=== PATIENT | male | born 1970 | race Caucasian/White ===

== ENCOUNTER → 2018-07-12 14:18 | Outpatient (CLI) | payer BC, SELFPAY ==
[2018-07-12 07:47] VITALS: BMI 25.1
--- OUTSIDE RECORDS SUMMARY | 2018-10-14 02:48 | XMS RPT_ITS ---
:1970 Author Organization [facility] Care Team Providers Name Role Phone Jann Zamudio Attending Unavailable Ty Lee Referring Unavailable Jann Zamudio Attending Unavailable Jann Zamudio Referring Unavailable Ty Lee Primary Care Unavailable PROBLEMS PROBLEMS DATE TYPE CONDITION / CODE ATTENDING STATUS SOURCE 07/13/2018 Unknown J02.9 - Acute Robb, Jann Active [place] pharyngitis, [facility] unspecified / Hospital J02.9(ICD-10) Repository 07/13/2018 Unknown J01.90 - Acute Robb, Jann Active [place] sinusitis, Community unspecified / Hospital J01.90(ICD-10) Repository 07/13/2018 Unknown J01.40 - Acute Robb, Jann Active [place] pansinusitis, Community unspecified / Hospital J01.40(ICD-10) Repository PROCEDURES PROCEDURES No Procedure Records FoundRESULTS RESULTS URGENT CARE VISIT Observed: 07/12/2018 Status: F Source: [place] REPORT 8:12 AM [facility] REPOSITORY [facility] [address] [place] [address] [address] [place] [address] OFFICE VISIT Date of Service: 07/12/18 MR#: [id number] Acct: [id number] Name: PATTI CAMEJO Rep #: [id number] : 1970 Provider: Jann LLOYD Age/Sex: 47/M Location: [facility] Status: Signed Intake Vital Signs07/12/18 Height 6 ft 3 in 07/12/18 Weight: 201 lb 07/12/18 Body Mass Index (BMI) 25.1 07/12/18 Blood Pressure 128/84 H Intake Visit Reasons: SORE THROAT/HEADACHE Slat Grader Required: No Accompanied by: SELF Is patient in pain?: No Allergies No Known Allergies Allergy (Unverified 07/12/18 07:48) Medications amoxicillin 875 mg-potassium clavulanate 125 mg tablet 1 tab PO Q12H 10 Days #20 tab 07/12/18 [Rx Confirmed 07/12/18] PFSH Medical History Cat allergies (Acute) Surgical History History of back surgery (Acute) Social History Smoking Status: Never smoker alcohol intake: current alcohol intake frequency: a few times a week HPI HPI Details: PATTI CAMEJO, is a 47 M who presents to the office today for nasal congestion, sinus headache and sore throat for the past 10 days. Patient states that the nasal congestion and sinus headache have worsened over the past several days. He has used Tylenol for the headaches which does help moderately. He is also used Mucinex and several other [id number] medications with no improvement. He has had no fever, chills, sweats. No nausea, vomiting, diarrhea. No other associated symptoms or alleviating/aggravating factors. ROS Const Constitutional: Positive for headache(s); no fever(s), chills, night sweats or abnormal sleep pattern ENT ENT: Positive for headache(s), nasal congestion, sinus pressure, sinus pain and nasal discharge; no ear pain Resp Respiratory: No cough or shortness of breath Cardio Cardiology: No shortness of breath, irregular heart rhythm or fast heart rate Neuro Neurology: Positive for headache(s); no confusion Psych Psychiatric: No abnormal sleep pattern, No confusion Exam Const General: cooperative, healthy appearing [facility] Head: normal to inspection Ears: hearing grossly normal bilaterally, TM's normal bilaterally, EAC's normal Nose: nasal discharge purulent Face and sinus: sinus tenderness frontal and maxillary Mouth: oral mucosae normal Throat: abnormal tonsil bilaterally, postnasal drainage Resp Effort AND Inspection: normal respiratory effort Auscultation: Bilateral: Clear to Auscultation Cardio Palpation: normal PMI Rate: regular rate Rhythm: regular rhythm Neuro General: alert, CN's II-XI intact bilaterally Psych Appearance: grossly normal Mental Status: mental status grossly normal Results BMSRAPIDSTREPA Office Rapid Strep A Negative Last Edit by Senia Acharya on 07/12/18 07:55 Assessment AND Plan Problems 1. Acute non-recurrent pansinusitis J01.40 Status Acute Plan Augmentin as prescribed today. Encouraged to get plenty of rest, drink lots of clear liquids, and use Tylenol or Ibuprofen (unless contraindicated) for fever and comfort. Patient also educated on other symptomatic management techniques. To be seen in 7-10 days if no improvement; sooner if worsening of symptoms. Patient advised of potential red flags and when appropriate to report to the ED. Patient verbalized understanding and agreement with all the above. Orders Orders: Medications New: amoxicillin-pot clavulanate 875-125 mg (Augmentin1 tab PO Q12H 10 days 20 tabs 0RF J01.90 ) Coding Level of Care Code Off vis,new,level 3 Diagnoses Acute non-recurrent pansinusitis J01.40 Recurrence: non-recurrent Sinusitis location: pansinusitis 07/12/18 0812 <Electronically signed by Jann LLOYD> Date Jann LLOYD Cosigner Signature: Date (if applicable) CC: Observed: 07/12/2018 Status: F Source: [place], R/O STREP A 7:45 AM [facility] REPOSITORY VANESSA Culture No Group A Beta Streptococcus isolated. * This cultures intended use is to screen for Beta Streptococcus A only. All other pathogens and potential pathogens will not be screened for or reported. If a complete workup of all potential pathogens is indicated an order for a routine throat culture is required. Performed By: #### M100.010 #### [facility] [address] [place], [address] ALLERGIES ALLERGIES DATE TYPE / CODE NAME / CODE REACTION SEVERITY SOURCE 07/12/2018 Drug No Known Unknown [facility] Allergy/4160 Allergies/F00 Hospital 68100(SNOMED [id number](RXNOR Repository CT) M) ENCOUNTERS ENCOUNTERS ADMIT/DISCHARGE ACCOUNT ADMITTING ENCOUNTER LOCATION SOURCE NUMBER CLASS 07/12/2018 [id number] Ambulatory [place] ing:[facility]SPEC Repository 07/12/2018/12/18/ [id number] Ambulatory BMSBuilding:[address] [place] [address] [facility] Repository PAYERS PAYERS ENCOUNTER GUARANTOR PAYER SUBSCRIBER SOURCE 07/12/2018 PATTI Primary PATTI [place] [id number] Insurance:ANTHEMPolic SCHNEIDERDOB: Community [place]: [id number] [id number] Repository [id number]: (330) Date:5952-02-16QS [phone] () [address] [place] [address] [place] [address]UW: 07/12/2018 Secondary NOT GIVENUNK [place] Insurance:SELF PAY [facility] Number: Effective Repository Date:2018-07-12 07/12/2018 PATTI Primary PATTI [place] [id number] Insurance:ANTHEMPolic SCHNEIDERDOB: [facility] [place] y Number: [id number] [id number] Repository [id number]: [phone]) Date:[id number] [phone] () [place] [address]ZF: 07/12/2018 Secondary NOT GIVENUNK [place] Insurance:SELF PAY [facility] Number: Effective Repository Date:2018-07-12
== END ==
PROVIDERS: Family Provider Internal Medicine; PCP Internal Medicine; Referring Provider Physician Assistant Surgical; Visit Provider Physician Assistant Surgical
DX: J02.9 Acute pharyngitis, unspecified (principal)
CPT/HCPCS: 87081

== ENCOUNTER 2025-02-09 18:29 | Emergency (ER) | payer BC, SELFPAY ==
[2025-02-09] VITALS (7 sets, daily range): BP systolic 130–163; BP diastolic 79–111; PULSE 65–103; RESP 14–21; TEMP 36.9; O2SAT 93–99
--- NOTE | 2025-02-09 18:36 | EX.ED.DYSGE1 ---
HPI History of Present Illness Chief Complaint: Allergic Reaction Detail of Chief Complaint: Allergic reaction Informant: patient Narrative Narrative: Patient presents the emergency department with complaint of allergic reaction to hornets that stung him around 9 AM today while playing golf. Patient states that he was only stung on the legs and developed some hives. He took Benadryl at home. About an hour or 2 ago developed some swelling to his lips and that when he decided to come and get evaluated. He denies difficulty breathing or difficulty swallowing. No significant medical history. [facility] Medical History (Updated 02/09/25 @ 23:[address] Mara Brooke, DO) Cat allergies Home Medications ?Medication ?Instructions ?Recorded ?Last Taken ?Type epinephrine 0.3 mg/0.3 mL 0.3 mg (0.3 mL) IM Q10M PRN PRN 02/09/25 Unknown Rx injection, auto-injector (EpiPen) anaphylaxis #1 ea prednisone 20 mg tablet 20 mg PO BID #6 tabs 02/09/25 Unknown Rx Allergy/AdvReac Type Severity Reaction Status Date / Time No Known Allergies Allergy Verified 02/09/25 18:30 Surgical History History of back surgery Social History Smoking Status: Never smoker alcohol intake: current alcohol intake frequency: a few times a week ROS ROS ED Review of Systems ROS Unobtainable: other Constitutional Constitutional ED: Reports lethargy; Denies chills, fever(s), sweats or weight loss Eyes Eyes: Denies blurry vision, change in vision or diplopia ENT ENT ED: Reports other Details: Lip swelling ; Denies rhinorrhea or sore throat Cardiovascular Cardiovascular: Reports chest pain and racing heartbeat; Denies orthopnea Respiratory/Chest Respiratory/Chest: Reports dyspnea and dyspnea on exertion; Denies cough, orthopnea or sputum Gastrointestinal Gastrointestinal: Denies abdominal pain, diarrhea, nausea or vomiting Genitourinary Genitourinary ED: Denies dysuria, hematuria or urinary frequency Musculoskeletal Musculoskeletal: Denies arthralgias, back pain, myalgias or neck pain Integumentary Denies abscess, Abrasions or rash Neurologic Neurologic: Denies headache(s) or weakness Psychiatric Psychiatric: Denies anxiety, depression or suicidal thoughts Endocrine Endocrinology: Denies polydipsia, polyphagia or polyuria Hematologic/Lymphatic Hematologic/Lymphatic: Denies easy bleeding, easy bruising or lymphadenopathy Allergic/Immunologic Allergic/Immunologic ED: Reports urticaria; Denies mouth swelling or tongue swelling EXAM Physical Exam Const Vital Signs: 02/09/25 18:30 02/09/25 19:29 02/09/25 20:00 Temperature 98.5 F Temperature Source Oral Pulse Rate 103 H 84 81 Respiratory Rate 16 21 H 16 Blood Pressure 162/111 H 163/92 H 147/80 H Blood Pressure Mean 128 115 102 Pulse Ox 97 99 93 Oxygen Delivery Method Room Air Room Air Room Air 02/09/25 21:00 02/09/25 22:00 Temperature Temperature Source Pulse Rate 82 67 Respiratory Rate 20 H 14 Blood Pressure 141/84 H 130/79 H Blood Pressure Mean 103 96 Pulse Ox 95 95 Oxygen Delivery Method Room Air Positive well nourished and well developed General Appearance ED: well developed and NAD HEENT Reports TM's clear and moist mucous membranes HEENT Narrative: Edema of the upper and lower lip. No angioedema of the tongue or oropharynx. No stridor on exam. normocephalic and atraumatic; Negative for trauma or tenderness Tympanic Membrane ED: Yes TM's clear Eyes PERRL and EOMs intact bilaterally General Eye ED: Negative for pale conjunctiva or scleral icterus Neck no lymphadenopathy, supple and no JVD General: Negative for tenderness Chest Wall inspection of chest normal and palpation of chest normal Chest: Negative for tenderness Resp normal respiratory effort and clear to auscultation bilaterally Effort and Inspection: Negative for respiratory distress or pain with movement Auscultation: Negative for rhonchi, wheezes or diminished lung sounds Cardio regular rate, regular rhythm, S1 normal heart sound, S2 normal heart sound and no murmurs Peripheral Pulses: pulses 2+ throughout GI normal to inspection, nondistended, normoactive bowel sounds, soft to palpation, non-tender, non-distended and no masses Back/Spine no CVA tenderness and no thoracic nor lumbar tenderness Extremity normal to inspection General Extremety ED: Negative for edema General Extremity: Negative for edema Neuro oriented x3, CN's II-XII intact bilaterally, no sensory deficits noted and gait normal Sensorium / Orientation: awake, alert, oriented to person, oriented to place and oriented to time Motor Exam: strength 5/5 throughout and strength abnormal Psych mental status grossly normal Skin no wounds Skin Narrative: Patient with diffuse urticaria involving the neck as well as the trunk and extremities. MDM MDM MDM Narrative Medical decision making narrative: Patient with allergic reaction to hornet envenomation. IV line established. He was medicated with Benadryl as well as Pepcid and Solu-Medrol. Patient will have to be observed for resolution of symptoms. Patient was observed for over 4 hours and he had improvement significantly of the lip swelling. He has improvement in itching and urticaria but continues to have some lip swelling and urticaria. He is comfortable going home. Will dispense EpiPen as well as will write him a prescription for prednisone for 3 more days. Advised return if increased difficulty breathing or trouble swallowing or tongue swelling or condition worsen they wait. Lab Data Attestation: I reviewed the patient's lab results. Discharge Plan Triage Chief Complaint: Allergic Reaction ED Provider: Mara Brooke Dx/Rx/DC Orders Clinical Impression: Allergic reaction to bee sting Instructions: ED BEE STING General Allergic Rxn Prescriptions: New prednisone 20 mg tablet 20 mg PO BID Qty: 6 0RF epinephrine [EpiPen] 0.3 mg/0.3 mL auto-injector 0.3 mg IM Q10M PRN PRN (Reason: anaphylaxis) Qty: 1 0RF Rx Instructions: for 2 doses Primary Care Provider: Ty eLe Referrals: Ty Lee MD [Primary Care Provider] - 3-5 Days Print Language: Khmer Disposition Disposition: Home, Self Care
[2025-02-09] MEDS: DiphenhydrAMINE 50 MG/ML Syringe 25 MG IV (18:46)
[2025-02-09] MEDS: Famotidine 200 MG/20 ML MDV 20 MG in 0.9% Normal Saline (Pres. free 8 ML 300 MG IV (18:46)
--- OUTSIDE RECORDS SUMMARY | 2025-02-09 19:01 | XMS RPT_ITS | CCD ---
Author Organization [facility] Inform ion Partnership [facility] Care Team Providers Care Intelligence Operations Name Role Phone Ty Winters MD Primary Care Provider Ty Winters MD Primary Care Provider [phone] Iris AL.Gifty L[place]IS M Unavailable TY WINTERS Referring Unavailable TY WINTERS Primary Care Unavailable TY WINTERS Attending Unavailable TY WINTERS Primary Care Unavailable Allergies Allergy Classification Reported Allergen(s) Allergy Type Date of Onset Reaction(s) Facility (4 sources) Dust; Translations: [DUST] Propensity to adverse reactions 9 [facility] Work Phone: (3 sources) animals [Other] Propensity to adverse reactions 9 [facility] Work Phone: (1 source) OTHER; Translations: [OTHER] Propensity to adverse reactions (disorder) 9 [facility] Medications Current Medications Medication Drug Class(es) Dates Sig (Normalized) Sig (Original) multivitamin tablet (3 sources) Start: 05-02-2012 take 1 tablet by mouth once daily multivitamin tablet Take 1 tablet by mouth once daily. 0 05/02/2012 Active Comment on above: Take 1 tablet by zoraida th once daily. Problems Active Problems Problem Classification Problem Date Documented Da te Episodic/Chronic Gout and other crystal arthropathies (2 sources) Gout; Translations: [Gout, unspecified] Onset: 12-21-2024 12-21-2024 Chronic Immunizations and screening for infectious disease (2 sources) Vaccination needed; Translations: [Encounter for immunization] Episodic Other nutritional; endocrine; and metabolic disorders (1 source) Overweight; Translations: [Overweight] Episodic Screening and history of mental health and substance abuse codes (2 sources) Encounter for screening for depression; Translations: [Encounter for screening examination for other mental health and behavioral disorders] Onset: 12-21-2024 Episodic Past or Other Problems Problem Classification Problem Date Documented Da te Episodic/Chronic Contraceptive and procreative management (4 sources) Patient encounter status; Translations: [Encounter for sterilization] Onset: 01-09-2010 Resolved: 05-02-2012 05-02-2012 Episodic Other and unspecified benign neoplasm (5 sources) Adenomatous polyp of colon ; Translations: [Benign neoplasm of transverse colon] Onset: 11-27-2020 Episodic Other and unspecified benign neoplasm (1 source) Benign neoplasm of transverse colon; Translations: [Adenomatous polyp of transverse colon] Onset: 08-08-2022 Episodic Spondylosis; intervertebral disc disorders; other back problems (2 sources) Low back pain; Translations: [Lumbago] Onset: 06-27-2009 Resolved: 10-03-2013 10-03-2013 Episodic Viral infection (2 sources) Verruca plantaris; Translations: [Plantar wart] Onset: 10-03-2013 Resolved: 10-07-2020 10-07-2020 Episodic Results Test Name Value Interpretation Reference Range Facil [facility] CBC panel Auto (Bld)on 12-21 Erythrocyte distribution width (RBC) [Ratio] 12.2 % 11.5 - 15.0 % [facility] Hematocrit (Bld) [Volume fraction] 49.4 % 39.0 - 51.0 % [facility] Hemoglobin (Bld) [Mass/Vol] 16.5 g/dL 13.0 - 17.0 g/dL [facility] Interpretation and review of laboratory results Normal [facility] MCH (RBC) [Entitic mass] 32.7 pg 26.0 - 34.0 pg [facility] MCHC (RBC) [Mass/Vol] 33.4 g/dL 30.5 - 36.0 g/dL [facility] MCV (RBC) [Entitic vol] 97.8 fL 80.0 - 100.0 fL [facility] Nucleated RBC (Bld) [#/Vol] NINF [facility] Platelet mean volume (Bld) [Entitic vol] 10.5 fL 9.0 - 12.7 fL [facility] Platelets (Bld) [#/Vol] 244 10*3/uL [facility] RBC (Bld) [#/Vol] 5.05 10*6/uL 4.20 - 6.0 0 m/uL [facility] WBC (Bld) [#/Vol] 4.42 10*3/uL [facility] Erythrocyte distribution width (RBC) [Ratio] 12.2 % Normal 11.5-15.0 [facility] Comment on above: Order Comment: Speci men Type: BLOOD SPECIMEN Ordering Facility: [facility] Address: [address] [place] [address] Performed By: #### 5 8410-2 #### [facility] CLIA [id number] [address] [place] [address] [place] Hematocrit (Bld) [Volume fraction] 49.4 % Normal 39.0-51.0 [facility] Comment on above: Order Comment: Speci men Type: BLOOD SPECIMEN Ordering Facility: [facility] Address: [address] [place] [address] Performed By: #### 5 8410-2 #### [facility] CLIA [id number] [address] [place] [address] [place] Hemoglobin (Bld) [Mass/Vol] 16.5 g/dL Normal 13.0-17.0 [facility] Comment on above: Order Comment: Speci men Type: BLOOD SPECIMEN Ordering Facility: [facility] Address: [address] [place] [address] Performed By: #### 5 8410-2 #### [facility] CLIA [id number] [address] [place] [address] [place] MCH (RBC) [Entitic mass] 32.7 pg Normal 26.0-34.0 [facility] Comment on above: Order Comment: Speci men Type: BLOOD SPECIMEN Ordering Facility: [facility] Address: [address] [place] [address] Performed By: #### 5 8410-2 #### [facility] CLIA [id number] [address] [place] [address] [place] MCHC (RBC) [Mass/Vol] 33.4 g/dL Normal 30.5-36.0 [facility] Comment on above: Order Comment: Speci men Type: BLOOD SPECIMEN Ordering Facility: [facility] Address: [address] [place] [address] Performed By: #### 5 8410-2 #### [facility] CLIA [id number] [address] [place] [address] [place] MCV (RBC) [Entitic vol] 97.8 fL Normal 80.0-100.0 [facility] Comment on above: Order Comment: Speci men Type: BLOOD SPECIMEN Ordering Facility: [facility] Address: [address] [place] [address] Performed By: #### 5 8410-2 #### [facility] CLIA [id number] [address] [place] [address] [place] Nucleated RBC (Bld) [#/Vol] 10*3/uL Normal <0.01 [facility] Comment on above: Order Comment: Speci men Type: BLOOD SPECIMEN Ordering Facility: [facility] Address: [address] [place] [address] Performed By: #### 5 8410-2 #### [facility] CLIA [id number] [address] [place] [address] [place] Platelet mean volume (Bld) [Entitic vol] 10.5 fL Normal 9.0-12.7 [facility] Comment on above: Order Comment: Speci men Type: BLOOD SPECIMEN Ordering Facility: [facility] Address: [address] [place] [address] Performed By: #### 5 8410-2 #### [facility] CLIA [id number] [address] [place] [address] [place] Platelets (Bld) [#/Vol] 244 10*3/uL Normal 150-400 [facility] Comment on above: Order Comment: Speci men Type: BLOOD SPECIMEN Ordering Facility: [facility] Address: [address] [place] [address] Performed By: #### 5 8410-2 #### [facility] CLIA [id number] [address] [place] [address] [place] RBC (Bld) [#/Vol] 5.05 10*6/uL Normal 4.20-6.00 [facility] Comment on above: Order Comment: Speci men Type: BLOOD SPECIMEN Ordering Facility: [facility] Address: [address] [place] [address] Performed By: #### 5 8410-2 #### [facility] CLIA [id number] [address] [place] [address] [place] WBC (Bld) [#/Vol] 4.42 10*3/uL Normal 3.70-11.00 [facility] Comment on above: Order Comment: Speci men Type: BLOOD SPECIMEN Ordering Facility: [facility] Address: [address] [place] [address] Performed By: #### 5 8410-2 #### [facility] CLIA [id number] [address] [place] [address] [place] CNOVon 12-21-2024 CNOV Office Visit (INTMWS ) PATTI PITT ([id number]) 1970 M Date Time Provider Department 12/21/24 11:20 AM TY WINTERS INTMWS During your visit today, we recorded the following information about you: Pulse Respiration Blood pressure Weight 56/minute 16/minute 128/78 99.2 kg Height 1.895 m Ty Winters MD 12/21/2024 12:50 PM Signed This note was created using Quanttusriter. Subjective Patient presents with: Physical Patti Pitt is a 54 year old male. He was doing reasonably well acknowledging need to improve his lifestyle for general health. He gave a history of fall from a ladder last year, resulting in a spiral fracture of his right tibia and fibula, treated with cast at [facility]. We also noted a report from a [facility] for BCC. He continued to have gout attacks every few months on either foot, generally mild and self limited. He decided not to stay on allopurinol years ago. Other providers: Dr. Galvan, Optometry. [facility]. [facility]. Review of Systems Constitutional: Negative for fatigue and unexpected weight change. HENT: Negative for congestion. Eyes: Negative for visual disturbance. Respiratory: Negative for cough and shortness of breath. Cardiovascular: Negative for chest pain and leg swelling. Gastrointestinal: Negative for abdominal pain, constipation and diarrhea. Genitourinary: Negative for difficulty urinating. Musculoskeletal: Positive for arthralgias (feet, right leg). Negative for back pain. Skin: Negative. Neurological: Negative. Psychiatric/Behaviora l: Negative. PAST MEDICAL HISTORY Diagnosis Date Adenomatous polyp of transverse colon 11/27/2020 Basal cell carcinoma (BCC) of forehead 04/11/2024 [facility] Derm Fracture tibia/fibula 2023 Right leg, casted [facility] Gout of big toe 02/11/2021 Lumbago 07/26/2002 Dr. Laguerre Lumbar disc disease 2009 PAST SURGICAL HISTORY Procedure Laterality Date COLONOSCOPY FLX DX W/COLLJ SPEC WHEN PFRMD 11/27/2020 LAMINECTOMY,LUMBAR 07/06/2011 L4-L5. [facility] HEAD/NECK STAGE 1 <=5 04/11/2024 Forehead PERCUTANEOUS LUMBAR DISKECTOMY 2009 [place], [place] VASECTOMY UNI/BI SPX W/POSTOP SEMEN EXAMS 02/03/2010 FAMILY HISTORY Problem Relation Age of Onset Aneurysm Mother brain Hypertension Mother Hypertension Father Hyperlipidemia Father Obesity Father Cancer Father 81 bone marrow, blood disease, no active treatment No Known Problems Brother Prostate Cancer Maternal Grandfather in 50s Colon Cancer Maternal Grandfather 50 Alzheimer's Disease Paternal Grandmother Diabetes Paternal Grandfather ALLERGIES Allergen Reactions Animals [Other] Cough Dust Cough Current Outpatient Medications Medication Sig multivitamin tablet Take 1 tablet by mouth once daily. No current facility-administered medications for this visit. Objective BP 128/78 Pulse (!) 56 Resp 16 Ht 189.5 cm (6' 2.6) Wt 99.2 kg (218 lb 11.1 oz) BMI 27.63 kg/m? Physical Exam Constitutional: Appearance: Normal appearance. HENT: Head: Normocephalic. Nose: No congestion or rhinorrhea. Eyes: Extraocular Movements: Extraocular movements intact. Conjunctiva/sclera: Conjunctivae normal. Cardiovascular: Rate and Rhythm: Normal rate and regular rhythm. Heart sounds: No murmur heard. No gallop. Pulmonary: Breath sounds: Normal breath sounds. Abdominal: Palpations: Abdomen is soft. There is no mass. Tenderness: There is no abdominal tenderness. Musculoskeletal: General: No tenderness or deformity. Normal range of motion. Right lower leg: No edema. Left lower leg: No edema. Lymphadenopathy: Cervical: No cervical adenopathy. Neurological: General: No focal deficit present. Mental Status: He is alert. Assessment and Plan 1. Routine medical exam - ICD9: V70.0, ICD10: Z00.00 (primary diagnosis) - Counseled on healthy diet and regular exercise - Colorectal cancer screening - due next year. - Counseled on alcohol intake and health risks - Counseled on tobacco chewing risks. - Vaccine recommendations declined for now. - COMPLETE BLOOD COUNT - COMPREHENSIVE METABOLIC PANEL - LIPID PANEL, NONFASTING - URIC ACID 2. Screening for depression - ICD9: V79.0, ICD10: Z13.31 - DEPRESSION SCREENING 3. Encounter for screening examination for other mental health and behavioral disorders - ICD9: V79.8, ICD10: Z13.39 - ANXIETY SCREENING 4. Adenomatous polyp of transverse colon - ICD9: 211.3, ICD10: D12.3 - Call for colonoscopy November 2025. 5. Gout, unspecified cause, unspecified chronicity, unspecified site - ICD9: 274.9, ICD10: M10.9 Stable. He preferred no routine medication. - COMPLETE BLOOD COUNT - COMPREHENSIVE METABOLIC PANEL - URIC ACID Vict (more content not included)... Normal [facility] Comprehensive metabolic 2000 panelon 12-21-2024 Albumin [Mass/Vol] 4.4 g/dL Normal 3.9-4.9 [facility] Comment on above: Order Comment: Speci men Type: BLOOD SPECIMEN Ordering Facility: [facility] Address: [address] [place] [address] Performed By: #### 2 4323-8, 3084-1, LIPNF #### [facility] CLIA [id number] [address] [place] [address] [place] ALP [Catalytic activity/Vol] 101 U/L Normal 38-113 [facility] Comment on above: Order Comment: Speci men Type: BLOOD SPECIMEN Ordering Facility: [facility] Address: [address] [place] [address] Performed By: #### 2 4323-8, 3084-1, LIPNF #### [facility] CLIA [id number] [address] [place] [address] [place] ALT [Catalytic activity/Vol] 31 U/L Normal 10-54 [facility] Comment on above: Order Comment: Speci men Type: BLOOD SPECIMEN Ordering Facility: [facility] Address: [address] [place] [address] Performed By: #### 2 4323-8, 3084-1, LIPNF #### [facility] CLIA [id number] [address] [place] [address] [place] Anion gap [Moles/Vol] 11 mmol/L Normal 8-15 [facility] Comment on above: Order Comment: Speci men Type: BLOOD SPECIMEN Ordering Facility: [facility] Address: [address] [place] [address] Performed By: #### 2 4323-8, 3084-1, LIPNF #### [facility] CLIA [id number] [address] [place] [address] [place] AST [Catalytic activity/Vol] 25 U/L Normal 14-40 [facility] Comment on above: Order Comment: Speci men Type: BLOOD SPECIMEN Ordering Facility: [facility] Address: [address] [place] [address] Performed By: #### 2 4323-8, 3083-1, LIPNF #### [facility] CLIA [id number] [address] [place], [place] [address] [place] Bilirubin [Mass/Vol] 0.7 mg/dL Normal 0.2-1.3 [facility] Comment on above: Order Comment: Speci men Type: BLOOD SPECIMEN Ordering Facility: [facility] Address: [address] [place] [address] Performed By: #### 2 4323-8, 3083-, LIPNF #### [facility] CLIA [id number] [address] [place] [address] [place] Calcium [Mass/Vol] 9.7 mg/dL Normal 8.5-10.2 [facility] Comment on above: Order Comment: Speci men Type: BLOOD SPECIMEN Ordering Facility: [facility] Address: [address] [place] [address] Performed By: #### 2 4323-8, 3083-, LIPNF #### [facility] CLIA [id number] [address] [place] [address] [place] Chloride [Moles/Vol] 101 mmol/L Normal 98-107 [facility] Comment on above: Order Comment: Speci men Type: BLOOD SPECIMEN Ordering Facility: [facility] Address: [address] [place], [place] [address] Performed By: #### 2 4323-8, 3083-, LIPNF #### [facility] CLIA [id number] [address] [place], [place] [address] [place] CO2 [Moles/Vol] 27 mmol/L Normal 22-30 [facility] Comment on above: Order Comment: Speci men Type: BLOOD SPECIMEN Ordering Facility: [facility] Address: [address] [place] [address] Performed By: #### 2 4323-8, 3084-1, LIPNF #### [facility] CLIA [id number] [address] [place], [place] [address] [place] Creatinine [Mass/Vol] 1.09 mg/dL Normal 0.73-1.22 [facility] Comment on above: Order Comment: Speci men Type: BLOOD SPECIMEN Ordering Facility: [facility] Address: [address] [place] [address] Performed By: #### 2 4323-8, 308-1, LIPNF #### [facility] CLIA [id number] [address] [place] [address] [place] Creatinine and Glomerular filtration rate.predicted panel (S/P/Bld) 81 mL/min/1.73m??? Normal >=60 [facility] Comment on above: Order Comment: Geraldi men Type: BLOOD SPECIMEN Ordering Facility: [facility] Address: [address] [place] [address] Result Comment: Lenka mated Glomerular Filtration Rate (eGFR) is calculated using the 2020 CKD-EPI creatinine equation. This equation utilizes serum creatinine, sex, and age as parameters. The creatinine assay has traceable calibration to isotope dilution-mass spectrometry. Refer to KDIGO guidelines for clinical interpretation. In patients with unstable renal function, e.g. those with acute kidney injury, the eGFR may not accurately reflect actual GFR. Performed By: #### 2 4323-8, 3084-1, LIPNF #### [facility] CLIA [id number] [address] [place], [place] [address] [place] Glucose [Mass/Vol] 80 mg/dL Normal 74-99 [facility] Comment on above: Order Comment: Geraldi men Type: BLOOD SPECIMEN Ordering Facility: [facility] Address: [address] [place] [address] Result Comment: The [place] Diabetes Association (ADA) provides guidance for cutoff values for fasting glucose and random glucose. The ADA defines fasting as no caloric intake for at least 8 hours. Fasting plasma glucose results between 100 to 125 mg/dL indicate increased risk for diabetes (prediabetes). Fasting plasma glucose results greater than or equal to 126 mg/dL meet the criteria for diagnosis of diabetes. In the absence of unequivocal hyperglycemia, results should be confirmed by repeat testing. In a patient with classic symptoms of hyperglycemia or hyperglycemic crisis, random plasma glucose results greater than or equal to 200 mg/dL meet the criteria for diagnosis of diabetes. Reference: Standards of Medical Care in Diabetes 2016, [place] Diabetes Association. Diabetes Care. 2016.39(Suppl 1). Performed By: #### 2 4323-8, 3084-1, LIPNF #### [facility] CLIA [id number] [address] [place] [address] [place] Potassium [Moles/Vol] 5.0 mmol/L Normal 3.7-5.1 [facility] Comment on above: Order Comment: Speci men Type: BLOOD SPECIMEN Ordering Facility: [facility] Address: [address] [place] [address] Performed By: #### 2 4323-8, 3083-1, LIPNF #### [facility] CLIA [id number] [address] [place] [address] [place] Protein [Mass/Vol] 7.5 g/dL Normal 6.3-8.0 [facility] Comment on above: Order Comment: Speci men Type: BLOOD SPECIMEN Ordering Facility: [facility] Address: [address] [place] [address] Performed By: #### 2 4323-8, 3083-1, LIPNF #### [facility] CLIA [id number] [address] [place] [address] [place] Sodium [Moles/Vol] 139 mmol/L Normal 136-144 [facility] Comment on above: Order Comment: Speci men Type: BLOOD SPECIMEN Ordering Facility: [facility] Address: [address] [place] [address] Performed By: #### 2 4323-8, 308-1, LIPNF #### [facility] CLIA [id number] [address] [place], [place] [address] [place] Urea nitrogen [Mass/Vol] 13 mg/dL Normal 9-24 [facility] Comment on above: Order Comment: Speci men Type: BLOOD SPECIMEN Ordering Facility: [facility] Address: [address] [place] [address] Performed By: #### 2 4323-8, 3083-, LIPNF #### [facility] CLIA [id number] [address] [place], [place] [address] [place] LIPID PANEL, NONFASTINGon Cholesterol [Mass/Vol] 206 mg/dL High <200 [facility] Comment on above: Order Comment: Speci men Type: BLOOD SPECIMEN Ordering Facility: [facility] Address: [address] [place] [address] Result Comment: <200 mg/dL, Desirable 200-239 mg/dL, Borderline high >239 mg/dL, High Performed By: #### 2 4323-8, 308-1, LIPNF #### [facility] CLIA [id number] [address] [place] [address] [place] HDL CHOLESTEROL, NF 71 mg/dL Normal >39 [facility] Comment on above: Order Comment: Speci men Type: BLOOD SPECIMEN Ordering Facility: [facility] Address: [address] [place] [address] Result Comment: 40-5 9 mg/dL, Acceptable >59 mg/dL, High: Negative risk factor for coronary heart disease <40 mg/dL, Low: Positive risk factor for coronary heart disease Performed By: #### 2 4323-8, 308-1, LIPNF #### [facility] CLIA [id number] [address] [place], [place] [address] [place] LDL CHOLESTEROL CALCULATED, NF 124 mg/dL High <100 [facility] Comment on above: Order Comment: Speci men Type: BLOOD SPECIMEN Ordering Facility: [facility] Address: [address] [place] [address] Result Comment: <100 mg/dL, Optimal 100-129 mg/dL, Near optimal/above optimal 130-159 mg/dL, Borderline high 160-189 mg/dL, High >189 mg/dL, Very high Secondary prevention optimal LDL Cholesterol levels are recommended to be <70 mg/dL LDL cholesterol is calculated using the Barton-NIH equation. Performed By: #### 2 4323-8, 308-1, LIPNF #### [facility] CLIA [id number] [address] [place] [address] [place] LDL/HDL RATIO, NF 1.75 mg/dL Normal <2.54 [facility] Comment on above: Order Comment: Luci dorado Type: BLOOD SPECIMEN Ordering Facility: [facility] Address: [address] [place] [address] Result Comment: Refe rence: 1. National Cholesterol Education Program ATP III Guideline At-A-Glance Quick Desk Reference: National Heart, Lung, and Blood [place]. National Institutes of Health. 2001: NIH Publication No. 01-3305. 2. An International Atherosclerosis Society position paper: global recommendations for the management of dyslipidemia: executive summary, Atherosclerosis. 2014: 232(2):410-413. Performed By: #### 2 4323-8, 3083-, LIPNF #### [facility] CLIA [id number] [address] [place] [address] [place] NON HDL CHOL, NF 135 mg/dL High <130 [facility] Comment on above: Order Comment: Luci dorado Type: BLOOD SPECIMEN Ordering Facility: [facility] Address: [address] [place] [address] Result Comment: <130 mg/dL, Optimal 130-159 mg/dL, Near optimal/above optimal 160-189 mg/dL, Borderline high 190-219 mg/dL, High >219 mg/dL, Very high Secondary prevention optimal non HDL Cholesterol levels are recommended to be <100 mg/dL Performed By: #### 2 4323-8, 3083-1, LIPNF #### [facility] CLIA [id number] [address] [place] [id number] [place] T CHOL/HDL RATIO NF 2.90 mg/dL Normal <5.10 [facility] Comment on above: Order Comment: Speci men Type: BLOOD SPECIMEN Ordering Facility: [facility] Address: [address] [place] [address] Performed By: #### 2 4323-8, 308-1, LIPNF #### [facility] CLIA [id number] [address] [place], [place] [address] [place] TRIGLYCERIDES, NF 59 mg/dL Normal <150 [facility] Comment on above: Order Comment: Speci men Type: BLOOD SPECIMEN [facility] [facility] Address: [address] [place] [address] Result Comment: <150 mg/dL, Normal 150-199 mg/dL, Borderline high 200-499 mg/dL, High >499 mg/dL, Very high Performed By: #### 2 4323-8, 308-1, LIPNF #### [facility] CLIA [id number] [address] [place] [address] [place] VLDL CHOLESTEROL, NF 10 mg/dL Normal <30 [facility] Comment on above: Order Comment: Speci men Type: BLOOD SPECIMEN Ordering Facility: [facility] Address: [address] [place] [address] Performed By: #### 2 4323-8, 308-1, LIPNF #### [facility] CLIA [id number] [address] [place], [place] [id number] [place] Urate SerPl-mCncon 5 Urate [Mass/Vol] 6.8 mg/dL Normal 4.0-8.1 [facility] Comment on above: Order Comment: Speci men Type: BLOOD SPECIMEN Ordering Facility: [facility] Address: [address] [place] [address] Performed By: #### 2 4323-8, 308-1, LIPNF #### [facility] CLIA [id number] [address] [place] [address] [place] [address] [place] Urgent Care Visit Reporton 0 02-11-2021 Urgent Care Visit Report [facility] [address] [place] [address] OFFICE VISIT Date of Service: 02/11/21 MR#: [id number] Acct: [id number] Name: PATTI PITT Rep #: [id number] : 1970 Provider: PREMA Zamudio Age/Sex: 50/M Location: [facility] Status: Signed Intake Vital Signs 02/11/21 12:18 BP 140/92 H Blood Pressure Location Lt brachial Position Sitting Respiration 16 Pulse 74 Pulse Source Monitor Temp 98.0 F Temp Source Temporal Pulse Oximetry (%) 99 Oxygen Delivery Method room air Intake Visit Reasons: Gout Chief Complaint: gout flair up Allergies No Known Allergies Allergy (Unverified 02/11/21 12:28) Medications NK 02/11/21 [History Confirmed 02/11/21] colchicine 0.6 mg tablet 0.6 mg PO BID #10 tab 02/11/21 [Rx Confirmed 02/11/21] PFSH Medical History Cat allergies Surgical History History of back surgery Social History Smoking Status: Never smoker alcohol intake: current alcohol intake frequency: a few times a week HPI HPI Chief Complaint: gout flair up Details: PATTI PITT, is a 50 M who presents to the office today for complaint of a gout flareup to the right great toe. Patient states that 36 hours ago he started having pain at the base of his right great toe. He does have a history of gout with similar symptoms. He did take to 10 mg prednisone tablets yesterday which did not make much of a difference with the pain in his right great toe. He denies numbness, tingling or loss range of motion. No other associated symptoms or alleviating/aggravati ng factors. ROS Const Constitutional: No other (6 system ROS completed with pertinent findings in the HPI otherwise normal.) Exam Const General: cooperative and healthy appearing Resp Effort Inspection: normal respiratory effort Auscultation: Bilateral: Clear to Auscultation Cardio Palpation: normal PMI Rate: regular rate Rhythm: regular rhythm Skin General: no rashes or lesions noted Neuro General: patient alert and CN's II-XI intact bilaterally Extrem General: full ROM and capillary refill normal Other: Base of the right great toe erythematous and swollen with pain to palpation. No obvious deformity upon palpation. Psych Appearance: grossly normal Mental Status: mental status grossly normal Coding Level of Care Code Off vis,est,level 3 Diagnoses Gout M10.9 Chronicity: acute Gout etiology: unspecified cause Gout site: toe Laterality: right Assessment and Plan Assessment and Plan (1) Gout: Status: Acute Qualifiers: Chronicity: acute Gout etiology: unspecified cause Gout site: toe Laterality: right Qualified Code(s): M10.9 - Gout, unspecified Plan - Jann LLOYD PA: Colchicine as prescribed today. Patient advised of other symptomatic management techniques as well as potential red flags and when appropriate to report to the ED. Patient advised to follow-up with his PCP for further evaluation and treatment and consideration of long-term colchicine dose. Patient verbalized understanding and agreement with all the above. Plan Details Other Medications: New: colchicine Take 1 tablet by mouth every 8 hours on day 1 then 1 tablet twice daily until gout is resolved. 0.6 mg PO BID 10 tabs 0RF 02/11/21 1304 Date Jann LLOYD Cosigner Signature: Date (if applicable) CC: Normal [facility] Vital Signs Date Time Vital Sign Value Performing Clinician Wendy fortune 12-21-2024 11:26-0400 Body height 189.5 cm Ty Winters MD Work Phone: [facility] 12-21-2024 11:26-0400 Body mass index (BMI) [Ratio] 27.63 kg/m2 Ty Winters MD Work Phone: [facility] 12-21-2024 11:26-0400 Body weight 99.2 kg Ty Winters MD Work Phone: [facility] 12-21-2024 11:26-0400 Diastolic blood pressure 78 mm[Hg] Ty Winters MD Work Phone: [facility] 12-21-2024 11:26-0400 Heart rate 56 /min Ty Winters MD Work Phone: [facility] 12-21-2024 11:26-0400 Respiratory rate 16 /min Ty Winters MD Work Phone: [facility] 12-21-2024 11:26-0400 Systolic blood pressure 128 mm[Hg] Ty Winters MD Work Phone: [facility] 08-08-2022 08:04-0500 Body height 190.5 cm Ty Winters MD Work Phone: [facility] 08-08-2022 08:04-0500 Body temperature 97 [degF] Ty Winters MD Work Phone: [facility] 08-08-2022 08:04-0500 Body weight 98.43 kg Ty Winters MD Work Phone: [facility] 08-08-2022 08:04-0500 Diastolic blood pressure 76 mm[Hg] Ty Winters MD Work Phone: [facility] 08-08-2022 08:04-0500 Heart rate 60 /min Ty Winters MD Work Phone: [facility] 08-08-2022 08:04-0500 Respiratory rate 12 /min Ty Winters MD Work Phone: [facility] 08-08-2022 08:04-0500 SaO2% (BldA) [Mass fraction] 100 % Ty Winters MD Work Phone: [facility] 08-08-2022 08:04-0500 Systolic blood pressure 126 mm[Hg] Ty Winters MD Work Phone: [facility] Encounters Encounter Date Encounter Type Care Provider Facility Start: 12-27-2024 End: 12-27-2024 Follow-up encounter Ty Winters MD Work Phone: [facility] Start: 12-21-2024 Encounter for genera l adult medical examination without abnormal findings TY WINTERS [facility] Start: 12-21-2024 End: 12-21-2024 ambulatory TY WINTERS Facility:[facility] Start: 12-21-2024 End: 12-21-2024 Patient encounter procedure Ty Winters MD Work Phone: [facility] Comment on above: Routine medical exam (Primary Dx); Screening for depression; Encounter for screening examination for other mental health and behavioral disorders; Adenomatous polyp of transverse colon; Gout, unspecified cause, unspecified chronicity, unspecified site Start: 12-21-2024 End: 12-21-2024 Patient encounter status Ty Winters MD Work Phone: [facility] Work Phone: Start: 08-08-2022 End: 08-08-2022 Patient encounter procedure Ty Winters MD Work Phone: [facility] Comment on above: Wellness examination (Primary Dx); Overweight; Need for vaccination; Need for COVID-19 vaccine; Adenomatous polyp of transverse colon Start: 08-08-2022 End: 08-08-2022 Patient encounter status Ty Winters MD Work Phone: [facility] Procedures Date Procedure Procedure Detail Performing Clinician Start: 12-21-2024 Adult depression scr eening assessment Ty Winters MD Work Phone: Start: 12-21-2024 Lipid 1996 panel - S shannon or Plasma Ty Winters MD Work Phone: Start: 08-08-2022 Lipid 1996 panel - S shannon or Plasma Ty Winters MD Work Phone: Start: 11-27-2020 Colonoscopy Ty Baker MD Work Phone: Plan of Treatment Date Care Activity Detail Author Start: 10-07-2030 Urine microalbumin profile [facility] Start: 12-21-2029 Lipid panel Lipid Screening [facility] Start: 12-22-2027 Diabetes Screening Diabetes Screenin g [facility] Start: 08-08-2027 Lipid panel Lipid Screening [facility] Start: 08-08-2027 LIPID SCREEN LIPID SCREEN [facility] Start: 12-21-2025 Anxiety Screening Anxiety Screening [facility] Start: 12-21-2025 Covid-19 Vaccine () Covid-19 Vaccine () [facility] Comment on above: Postponed from 03/26 (Declined at this time) Start: 12-21-2025 Depression Screening Depression Scre ening [facility] Start: 11-27-2025 Colonoscopy COLONOSCOPY [facility] Start: 11-27-2025 COLORECTAL CANCER SCREENING COLORECTAL CANCER SCREENING [facility] Start: 11-27-2025 Screening for malign ant neoplasm of colon [facility] Start: 08-08-2025 DIABETES SCREEN DIABETES SCREEN [facility] Start: 08-08-2025 Diabetes Screening Diabetes Screenin g [facility] Start: 03-26-2025 Influenza vaccination Influenz a Vaccine (Season Ended) [facility] Start: 12-21-2024 End: 03-22-2025 Comprehensive metabolic 2000 panel - Serum or Plasma [facility] Work Phone: Comment on above: Expected: 12/21/2024 , Expires: 03/22/2025 Start: 12-21-2024 End: 03-22-2025 LIPID PANEL, NONFASTING [facility] Comment on above: Expected: 12/21/2024 , Expires: 03/22/2025 Start: 12-21-2024 End: 03-22-2025 Urate [Mass/volume] in Serum or Plasma [facility] Comment on above: Expected: 12/21/2024 , Expires: 03/22/2025 Start: 01-22-2023 Influenza vaccination INFLUENZA (#1) [facility] Comment on above: Postponed from 03/26 (Declined at this time) Start: 09-07-2022 HEPATITIS B (2 of 3 - 19+ 3-dose series) HEPATITIS B (2 of 3 - 19+ 3-dose series) [facility] Start: 01-11-2021 COVID-19 VACCINE (3 - Booster for Moderna series) COVID-19 VACCINE (3 - Booster for Moderna series) [facility] Start: 2020 Pneumococcal Vaccine : 50+ (1 of 1 - PCV) Pneumococcal Vaccine: 50+ (1 of 1 - PCV) [facility] Start: 2020 SHINGRIX VACCINE (1 of 2) SHINGRIX VACCINE (1 of 2) [facility] Start: 10-22-2015 COLOGUARD (FIT-DNA) COLOGUARD (FIT-D NA) [facility] Start: 10-22-[address] COLONOGRAPHY [facility] Start: 10-22-2015 FECAL OCCULT BLOOD FECAL OCCULT BLOO D [facility] Start: 10-22-2015 Screening for malign ant neoplasm of colon [facility] Start: 10-22-2015 SIGMOIDOSCOPY SIGMOIDOSCOPY [facility] End: 08-08-2023 ECG COMPLETE ECG COMPLETE ECG Routine Wellness examination 1 Occurrences starting 08/08/2022 until 08/08/2023 [facility] Work Phone: Comment on above: 1 Occurrences starti ng 08/08/2022 until 08/08/2023 PFIZER-BIONTECH COVI D-19 BIVALENT BOOSTER VACCINE, AGE 12+ YR PFIZER-BIONTECH COVID-19 BIVALENT BOOSTER VACCINE, AGE 12+ YR Immunization/Injection Routine Need for COVID-19 vaccine Ordered: 08/08/2022 [facility] Work Phone: Comment on above: [facility]: [facility] Immunization Date Immunization Notes Care Provider Fa cilinam 08-10-2022 hepatitis B vaccine, adult dosage Ty Winters MD Work Phone: [facility] Work Phone: 08-10-2022 hepatitis B vaccine, unspecified formulation Ty Winters MD Work Phone: [facility] 08-08-2022 hepatitis B vaccine, adult dosage Ty Winters MD Work Phone: [facility] Work Phone: 10-07-2020 tetanus toxoid, reduced diphtheria toxoid, and acellular pertussis vaccine, adsorbed Ty Winters MD Work Phone: [facility] 04-22-2012 influenza virus vaccine, unspecified formulation Ty Winters MD Work Phone: [facility] Work Phone: 06-27-2009 tetanus toxoid, reduced diphtheria toxoid, and acellular pertussis vaccine, adsorbed Ty Winters MD Work Phone: [facility] Work Phone: NEGATED: Highlighted row has not occurred!12-21-2024 COVID-19 vaccine, age 12+ yr, bivalent (PFIZER-BIONTECH) Ty Winters MD Work Phone: [facility] Comment on above: Deferred: Patient Re fused - Verified Eli Delacruz LPN NEGATED: Highlighted row has not occurred!08-08-2022 COVID-19 booster vaccine, age 12+ yr, bivalent (PFIZER-BIONTECH) Ty Winters MD Work Phone: [facility] Work Phone: Payers Date Payer Category Payer [facility] BLUE CARD PPO OOS [id number] 2020 Unknown [employer] BLUE CARD PPO OOS [id number] 2020-Present [phone] [address] [place] [address] PPO [id number] 2020 Unknown [id number] Social History Date Type Detail Facility Start: 08-08-2022 Tobacco smoking status NHIS Never smoked tobacco [facility] Work Phone: Start: 08-08-2022 Tobacco use and exposure User of smokeless tobacco [facility] Work Phone: History of tobacco use Chews Tobacco [facility] Work Phone: Start: 08-08-2022 End: 12-21-2024 Alcohol intake Current drinker of alcohol (finding) [facility] Start: 08-08-2022 End: 12-03-2022 Alcohol intake [facility] Start: 08-08-2022 History SDOH Alcohol Frequency 5 [facility] Start: 08-08-2022 History SDOH Alcohol Std Drinks 2 [facility] Start: 08-08-2022 History SDOH Physical Activity DPW 0 [facility] Start: 08-08-2022 History SDOH Stress 1 [facility] Start: 08-08-2022 Alcohol Comment beer, occasional wine at least 5 days/week [facility] Start: 1970 Sex Assigned At Not on file [facility] Start: 12-03-2022 End: 12-21-2024 Alcohol Use Disorder Identification Test - Consumption [AUDIT-C] [facility] How often to you hav e a drink containing alcohol? 4 or more times a week [facility] How many standard dr inks containing alcohol do you have on a typical day? 3 or 4 [facility] How often do you hav e 6 or more drinks on 1 occasion? Less than monthly [facility] Adult Depression Scr eening Assessment 0 [facility] Do you feel stress - tense, restless, nervous, or anxious, or unable to sleep at night because your mind is troubled all the time - these days [OSQ] Not at all [facility] Functional Status Date Assessment Result Facility 12-21-2024 Total score [AUDIT-C] 6 12/22/19 11:45 AM EDT Ty Winters MD [facility] 07-20-2014 Are you deaf, or do you have serious difficulty hearing No 07/20/2014 7:43 AM Nae Storey LPN No [facility] 07-20-2014 Are you blind, or do you have serious difficulty seeing, even when wearing glasses No 07/20/2014 7:43 AM EST Nae Casey LPN No [facility] 07-20-2014 Do you have serious difficulty walking or climbing stairs No 07/20/2014 7:43 AM Nae Storey LPN No [facility] 07-20-2014 Do you have difficul ty dressing or bathing No 07/20/2014 7:43 AM Nae Storey LPN No [facility] 07-20-2014 Because of a physica l, mental, or emotional condition, do you have difficulty doing errands alone such as visiting a physician's office or shopping No 07/20/2014 7:43 AM Nae Storey LPN No [facility] Mental Status Date Assessment Result Facility 07-20-2014 Because of a physica l, mental, or emotional condition, do you have serious difficulty concentrating, remembering, or making decisions No 07/20/2014 7:43 AM Nae Storey LPN No [facility] Instructions 12-21-2024 Patient Instructions Note Date & Type Note Facility 12-21-2024 Instructions Ty Winters MD - 12/21/2024 12:03 PM EDT CALL FOR COLONOSCOPY ORDERS NOVEMBER 2025. documented in this encounter [facility] Progress note 12-21-2024 Note Date & Type Note Facility 12-21-2024 Note HNO ID: [id number] Author: TY WINTERS MD Service: ? Author Type: Physician Type: Progress Notes Filed: 12/21/2024 12:50 Note Text: This note was created using Quanttusriter. Subjective Patient presents with: Physical Patti Pitt is a 54 year old male. He was doing reasonably well acknowledging need to improve his lifestyle for general health. He gave a history of fall from a ladder last year, resulting in a spiral fracture of his right tibia and fibula, treated with cast at [facility]. We also noted a report from a [facility] for BCC. He continued to have gout attacks every few months on either foot, generally mild and self limited. He decided not to stay on allopurinol years ago. Other providers: Dr. Galvan, Optometry. [facility]. [facility]. Review of Systems Constitutional: Negative for fatigue and unexpected weight change. HENT: Negative for congestion. Eyes: Negative for visual disturbance. Respiratory: Negative for cough and shortness of breath. Cardiovascular: Negative for chest pain and leg swelling. Gastrointestinal: Negative for abdominal pain, constipation and diarrhea. Genitourinary: Negative for difficulty urinating. Musculoskeletal: Positive for arthralgias (feet, right leg). Negative for back pain. Skin: Negative. Neurological: Negative. Psychiatric/Behavioral: Negative. PAST MEDICAL HISTORY Diagnosis Date Adenomatous polyp of transverse colon 11/27/2020 Basal cell carcinoma (BCC) of forehead 04/11/2024 [facility] Fracture tibia/fibula 2023 Right leg, casted [facility] Gout of big toe 02/11/2021 Lumbago 07/26/2002 Dr. Laguerre Lumbar disc disease 2009 PAST SURGICAL HISTORY Procedure Laterality Date COLONOSCOPY FLX DX W/COLLJ SPEC WHEN PFRMD 11/27/2020 LAMINECTOMY,LUMBAR 07/06/2011 L4-L5. [facility] HEAD/NECK STAGE 1 <=5 04/11/2024 Forehead PERCUTANEOUS LUMBAR DISKECTOMY 2009 [place], [place] VASECTOMY UNI/BI SPX W/POSTOP SEMEN EXAMS 02/03/2010 FAMILY HISTORY Problem Relation Age of Onset Aneurysm Mother brain Hypertension Mother Hypertension Father Hyperlipidemia Father Obesity Father Cancer Father 81 bone marrow, blood disease, no active treatment No Known Problems Brother Prostate Cancer Maternal Grandfather in 50s Colon Cancer Maternal Grandfather 50 Alzheimer's Disease Paternal Grandmother Diabetes Paternal Grandfather ALLERGIES Allergen Reactions Animals [Other] Cough Dust Cough Current Outpatient Medications Medication Sig multivitamin tablet Take 1 tablet by mouth once daily. No current facility-administered medications for this visit. Objective BP 128/78 Pulse (!) 56 Resp 16 Ht 189.5 cm (6' 2.6) Wt 99.2 kg (218 lb 11.1 oz) BMI 27.63 kg/m? Physical Exam Constitutional: Appearance: Normal appearance. HENT: Head: Normocephalic. Nose: No congestion or rhinorrhea. Eyes: Extraocular Movements: Extraocular movements intact. Conjunctiva/sclera: Conjunctivae normal. Cardiovascular: Rate and Rhythm: Normal rate and regular rhythm. Heart sounds: No murmur heard. No gallop. Pulmonary: Breath sounds: Normal breath sounds. Abdominal: Palpations: Abdomen is soft. There is no mass. Tenderness: There is no abdominal tenderness. Musculoskeletal: General: No tenderness or deformity. Normal range of motion. Right lower leg: No edema. Left lower leg: No edema. Lymphadenopathy: Cervical: No cervical adenopathy. Neurological: General: No focal deficit present. Mental Status: He is alert. Assessment and Plan 1. Routine medical exam - ICD9: V70.0, ICD10: Z00.00 (primary diagnosis) - Counseled on healthy diet and regular exercise - Colorectal cancer screening - due next year. - Counseled on alcohol intake and health risks - Counseled on tobacco chewing risks. - Vaccine recommendations declined for now. - COMPLETE BLOOD COUNT - COMPREHENSIVE METABOLIC PANEL - LIPID PANEL, NONFASTING - URIC ACID 2. Screening for depression - ICD9: V79.0, ICD10: Z13.31 - DEPRESSION SCREENING 3. Encounter for screening examination for other mental health and behavioral disorders - ICD9: V79.8, ICD10: Z13.39 - ANXIETY SCREENING 4. Adenomatous polyp of transverse colon - ICD9: 211.3, ICD10: D12.3 - Call for colonoscopy November 2025. 5. Gout, unspecified cause, unspecified chronicity, unspecified site - ICD9: 274.9, ICD10: M10.9 Stable. He preferred no routine medication. - COMPLETE BLOOD COUNT - COMPREHENSIVE METABOLIC PANEL - URIC ACID Ty Winters MD [facility] History of Present illness Narrative 12-21-2024 Ty Winters MD - 12/21/2024 11:45 AM EDT Note Date & Type Note Facility 05-29-2025 History of Presen t illness Narrative This note was created using [employer]. Subjective Patient presents with: Physical Patti Pitt is a 54 year old male. He was doing reasonably well acknowledging need to improve his lifestyle for general health. He gave a history of fall from a ladder last year, resulting in a spiral fracture of his right tibia and fibula, treated with cast at [facility]. We also noted a report from a [facility] for BCC. He continued to have gout attacks every few months on either foot, generally mild and self limited. He decided not to stay on allopurinol years ago. Other providers: Dr. Galvan, Optometry. [facility]. [facility]. Review of Systems Constitutional: Negative for fatigue and unexpected weight change. HENT: Negative for congestion. Eyes: Negative for visual disturbance. Respiratory: Negative for cough and shortness of breath. Cardiovascular: Negative for chest pain and leg swelling. Gastrointestinal: Negative for abdominal pain, constipation and diarrhea. Genitourinary: Negative for difficulty urinating. Musculoskeletal: Positive for arthralgias (feet, right leg). Negative for back pain. Skin: Negative. Neurological: Negative. Psychiatric/Behavioral: Negative. PAST MEDICAL HISTORY Diagnosis Date Adenomatous polyp of transverse colon 11/27/2020 Basal cell carcinoma (BCC) of forehead 04/11/2024 [facility] Fracture tibia/fibula 2023 Right leg, casted [facility] Gout of big toe 02/11/2021 Lumbago 07/26/2002 Dr. Laguerre Lumbar disc disease 2009 PAST SURGICAL HISTORY Procedure Laterality Date COLONOSCOPY FLX DX W/COLLJ SPEC WHEN PFRMD 11/27/2020 LAMINECTOMY,LUMBAR 07/06/2011 L4-L5. [facility] HEAD/NECK STAGE 1 <=5 04/11/2024 Forehead PERCUTANEOUS LUMBAR DISKECTOMY 2009 [place], [place] VASECTOMY UNI/BI SPX W/POSTOP SEMEN EXAMS 02/03/2010 FAMILY HISTORY Problem Relation Age of Onset Aneurysm Mother brain Hypertension Mother Hypertension Father Hyperlipidemia Father Obesity Father Cancer Father 81 bone marrow, blood disease, no active treatment No Known Problems Brother Prostate Cancer Maternal Grandfather in 50s Colon Cancer Maternal Grandfather 50 Alzheimer's Disease Paternal Grandmother Diabetes Paternal Grandfather ALLERGIES Allergen Reactions Animals [Other] Cough Dust Cough Current Outpatient Medications Medication Sig multivitamin tablet Take 1 tablet by mouth once daily. No current facility-administered medications for this visit. Objective BP 128/78 Pulse (!) 56 Resp 16 Ht 189.5 cm (6' 2.6) Wt 99.2 kg (218 lb 11.1 oz) BMI 27.63 kg/m Physical Exam Constitutional: Appearance: Normal appearance. HENT: Head: Normocephalic. Nose: No congestion or rhinorrhea. Eyes: Extraocular Movements: Extraocular movements intact. Conjunctiva/sclera: Conjunctivae normal. Cardiovascular: Rate and Rhythm: Normal rate and regular rhythm. Heart sounds: No murmur heard. No gallop. Pulmonary: Breath sounds: Normal breath sounds. Abdominal: Palpations: Abdomen is soft. There is no mass. Tenderness: There is no abdominal tenderness. Musculoskeletal: General: No tenderness or deformity. Normal range of motion. Right lower leg: No edema. Left lower leg: No edema. Lymphadenopathy: Cervical: No cervical adenopathy. Neurological: General: No focal deficit present. Mental Status: He is alert. Assessment and Plan 1. Routine medical exam - ICD9: V70.0, ICD10: Z00.00 (primary diagnosis) - Counseled on healthy diet and regular exercise - Colorectal cancer screening - due next year. - Counseled on alcohol intake and health risks - Counseled on tobacco chewing risks. - Vaccine recommendations declined for now. - COMPLETE BLOOD COUNT - COMPREHENSIVE METABOLIC PANEL - LIPID PANEL, NONFASTING - URIC ACID 2. Screening for depression - ICD9: V79.0, ICD10: Z13.31 - DEPRESSION SCREENING 3. Encounter for screening examination for other mental health and behavioral disorders - ICD9: V79.8, ICD10: Z13.39 - ANXIETY SCREENING 4. Adenomatous polyp of transverse colon - ICD9: 211.3, ICD10: D12.3 - Call for colonoscopy November 2025. 5. Gout, unspecified cause, unspecified chronicity, unspecified site - ICD9: 274.9, ICD10: M10.9 Stable. He preferred no routine medication. - COMPLETE BLOOD COUNT - COMPREHENSIVE METABOLIC PANEL - URIC ACID Ty Winters MD documented in this encounter [facility] Instructions 08-08-2022 Patient Instructions Note Date & Type Note Facility 08-08-2022 Instructions Ty Winters MD - 08/08/2022 8:37 AM EST Resume moderate or more intensity exercise 30 minutes 5 days per week. Get back to below 210 pounds. Limit salt intake to avoid high blood pressure (DASH diet) Stop tobacco use. Alcohol in moderation. Recombinant shingles vaccine (Shingrix) is recommended; 2 doses 2-6 months apart. Please read information, check with your insurance, and schedule vaccination at your local pharmacy. A prescription is not required. If you are certain you have coverage to receive this vaccine in the office, we can schedule this for you. Covid vaccinations. Complete Hepatitis B series #2 in 1 month, #3 in 6 months. documented in this encounter [facility] History of Present illness Narrative 08-08-2022 Ty Winters MD - 08/08/2022 8:11 AM EST Note Date & Type Note Facility 08-08-2022 History of Presen t illness Narrative This note was created using biNuter. Subjective Patient presents with: Physical Blood Pressure Patti Pitt is a 51 year old male. He was told in the past his blood pressure was elevated, so he started monitoring his blood pressure periodically and was getting variable readings, mostly elevated. He felt well. He had been less active recently and weight was going up. I updated his health record. PAST MEDICAL HISTORY Diagnosis Date Adenomatous polyp of transverse colon 11/27/2020 Gout of big toe 02/11/2021 Lumbago 07/26/2002 Dr. Laguerre PAST SURGICAL HISTORY Procedure Laterality Date BACK SURGERY HX COLONOSCOPY FLX DX W/COLLJ SPEC WHEN PFRMD 11/27/2020 F PERCUTANEOUS DISCECTOMY (PROBE) 05/2011, 2009 VASECTOMY UNI/BI SPX W/POSTOP SEMEN EXAMS 02/03/2010 FAMILY HISTORY Problem Relation Age of Onset Aneurysm Mother brain Hypertension Mother Hypertension Father Hyperlipidemia Father Obesity Father No Known Problems Brother Prostate Cancer Maternal Grandfather in 50s Colon Cancer Maternal Grandfather 50 Alzheimer's Disease Paternal Grandmother Diabetes Paternal Grandfather Social History Tobacco Use Smoking status: Never Smokeless tobacco: Current Types: Chew Vaping Use Vaping Use: Never used Substance Use Topics Alcohol use: Yes Comment: beer, occasional wine at least 5 days/week Drug use: No Review of Systems Constitutional: Negative. HENT: Negative. Eyes: Negative. Respiratory: Negative. Cardiovascular: Negative. Gastrointestinal: Negative. Genitourinary: Negative. Musculoskeletal: Negative. Skin: Negative. Neurological: Negative. Psychiatric/Behavioral: Negative. Objective BP 126/76 (BP Site: Left Arm, BP Position: Sitting, BP Cuff Size: Large Adult) Pulse 60 Temp 36.1 C (97 F) Resp 12 Ht 190.5 cm (6' 3) Wt 98.4 kg (217 lb) SpO2 100% BMI 27.12 kg/m Physical Exam Constitutional: Appearance: Normal appearance. HENT: Head: Normocephalic. Eyes: Extraocular Movements: Extraocular movements intact. Conjunctiva/sclera: Conjunctivae normal. Neck: Vascular: No carotid bruit. Cardiovascular: Rate and Rhythm: Normal rate and regular rhythm. Pulses: Normal pulses. Heart sounds: No murmur heard. No gallop. Pulmonary: Effort: Pulmonary effort is normal. Breath sounds: Normal breath sounds. Abdominal: Palpations: Abdomen is soft. Tenderness: There is no abdominal tenderness. Musculoskeletal: General: No tenderness or deformity. Right lower leg: No edema. Left lower leg: No edema. Lymphadenopathy: Cervical: No cervical adenopathy. Skin: Comments: Few actinic changes. Neurological: General: No focal deficit present. Mental Status: He is alert. Psychiatric: Mood and Affect: Mood normal. EKG sinus bradycardia, 1st degree AV block, otherwise normal. Baseline EKG. Assessment and Plan 1. Wellness examination - ICD9: V70.0, ICD10: Z00.00 (primary diagnosis) - Counseled on healthy diet and regular exercise - Discussed need for and benefit of weight loss. BMI 27.12 kg/(m^2) - Counseled on limiting alcohol intake to 2 drinks per day - Depression screening tool completed and reviewed with patient. Based on score and interview, patient is not at risk for depression and recommended no further intervention at this time. - Patient was counseled [id number] by myself (the billing provider) for the following immunizations and vaccine components, including side effects: COVID-19 and Hep B Vaccine. Patient consents for immunization and understands risks and benefits. A VIS sheet on each immunization was given to the patient. - ECG COMPLETE - Consider dermatology skin check. He goes to [facility]. - Lab results are pending. 2. Overweight - ICD9: 278.02, ICD10: E66.3 Weight increasing - Behavioral intervention 3. Need for vaccination - ICD9: V05.9, ICD10: Z23 - HEPATITIS B VACCINE, ADULT AGE 20+, IM 4. Need for COVID-19 vaccine - ICD9: V04.89, ICD10: Z23 - PFIZER-BIONTECH COVID-19 BIVALENT BOOSTER VACCINE, AGE 12+ YR 5. Adenomatous polyp of transverse colon - ICD9: 211.3, ICD10: D12.3 We reviewed recommendation for repeat in 5 years. Ty Winters MD documented in this encounter [facility] History of Past illness Narrative 10-03-2013 Note Date & Type Note Facility 10-03-2013 History of Past i llness Narrative Problem Noted Date Resolved Date Plantar wart 10/03/2013 10/07/2020 Sterilization 01/09/2010 05/02/2012 Lumbago 06/27/2009 10/03/2013 Overview: Dr. Joselin Laguerre documented as of this encounter (statuses as of 08/10/2022) [facility] Evaluation note Note Date & Type Note Facility Evaluation note Diagnosis Wellness examination- Primary Overweight Need for vaccination Need for prophylactic vaccination and inoculation against unspecified single disease Need for COVID-19 vaccine Adenomatous polyp of transverse colon documented in this encounter [facility] Evaluation note Note Date & Type Note Facility Evaluation note Diagnosis Routine medical exam- Primary Routine general medical examination at a health care facility Screening for depression Encounter for screening examination for other mental health and behavioral disorders Adenomatous polyp of transverse colon Gout, unspecified cause, unspecified chronicity, unspecified site documented in this encounter [facility] Reason for referral (narrative) Outpatient Procedure (Routine) - Authorized Note Date & Type Note Facility Reason for referral (narrati ve) Specialty Diagnoses / Procedures Referred By Contac t Referred To Contact [facility] Diagnoses Wellness examination Procedures ECG COMPLETE ECG ROUTINE ECG W/LEAST 12 LDS W/I&R Ty Winters MD [address] [place] [address] [facility] [address] [place] [address] Referral ID Status Reason Start Date Expiration Date Visits Requested Visits Authorized [id number] Authorized Auto-Generat ed Referral 08/08/2022 08/08/2023 1 1 [facility] Summary Purpose Family History No Family History Records FoundNo Family History Records Found Advance Directives No Advanced Directives Records FoundNo Advanced Directives Records Found Additional Source Comments (unrecognized sect ion and content) No Status Records FoundNo Status Records Found INFORMATION SOURCE (unrecogn ized section and content) DATE CREATED AUTHOR 03/16/2021 [facility] DATE CREATED AUTHOR AUTHOR'S ORGANIZ ATION 12/23/2024 [facility] Source Comments (unrecognize d section and content) In the event this informatio n is protected by the Federal Confidentiality of Alcohol and Drug Abuse Patient Records regulations: The Federal rules restrict any use of the information to criminally investigate or prosecute any alcohol or drug abuse patient.[facility] the event this information is protected by the Federal Confidentiality of Alcohol and Drug Abuse Patient Records regulations: The Federal rules restrict any use of the information to criminally investigate or prosecute any alcohol or drug abuse patient.[facility] the event this information is protected by the Federal Confidentiality of Alcohol and Drug Abuse Patient Records regulations: The Federal rules restrict any use of the information to criminally investigate or prosecute any alcohol or drug abuse patient.[facility] Reason for Visit (unrecogniz ed section and content) Reason Comments Physical Blood Pressure Reason Comments Physical Care Teams (unrecognized sec tion and content) Intelligence Operations Relationship Specialty Start Date End Date Ty Winters MD [address] [place], [place] [id number] PCP - General Internal Medicine 10/07/20 Intelligence Operations Relationship Specialty Start Date End Date Ty Winters MD [address] [place], [place] [id number] PCP - General Internal Medicine 10/07/20 Gifty Simmons, STEEL FABRICATOR.RECORDING ENGINEER [address] [place], [place] [id number] [employer] Sales Director Internal Medicine 07/03/24 Intelligence Operations Relationship Specialty Start Date End Date Ty Winters MD [address] [place], [place] [id number] PCP - General Internal Medicine 10/07/20 Gifty Simmons, STEEL FABRICATOR.RECORDING ENGINEER [address] [place], [place] [id number] [employer] Sales Director Internal Medicine 07/03/24 FOR RECORDS PERTAINING TO PATIENTS WHO ARE OR HAVE BEEN ENROLLED IN A CHEMICAL DEPENDENCY/SUBSTANCEABUSE PROGRAM, SOME INFORMATION MAY BE OMITTED. This clinical summary was aggregated from multiple sources. Caution should be exercised in using it in the provision of clinical care. This summary normalizes information from multiple sources, and as a consequence, information in this document may materially change the coding, format and clinical context of patient data. In addition, data may be omitted in some cases. CLINICAL DECISIONS SHOULD BE BASED ON THE PRIMARY CLINICAL RECORDS. [facility] [facility]. provides no warranty or guarantee of the accuracy or completeness of information in this document.
== END 2025-02-09 23:18 | disposition home or self-care (01) ==
PROVIDERS: Emergency Provider Emergency Medicine; PCP Internal Medicine; Visit Provider Emergency Medicine
DX: T63.441A Toxic effect of venom of bees, accidental (unintentional), initial encounter (principal); R60.0 Localized edema; L50.0 Allergic urticaria; Y93.53 Activity, golf
CPT/HCPCS: 96365; 96375; 99282; A4216